=== PATIENT | male | born 1935 | race Caucasian/White ===

== ENCOUNTER 2017-08-10 14:46 | Inpatient (IN) | payer MEDICARE ==
[~2017-08-10] VITALS: Ht 180.3 cm; Wt 72.6 kg
--- NOTE | 2017-08-10 15:10 | NUR ---
There are no ER beds available due to ED saturation. Pt placed in rashaun chair in hallway. Pt's and hris administrator from sending facility at sitting at bedside.
--- NOTE | 2017-08-10 15:15 | NUR ---
Unable to reconcile home medications at this time due to ED saturation.
[2017-08-10 15:54] LABS: BASOPHILS % (AUTO) 0.5 % (0.0-2.0); CARBON DIOXIDE 29 mmol/L (21-32); CHLORIDE 106 mmol/L (98-107); CREATININE 1.1 mg/dL (0.6-1.3); EOSINOPHILS # (AUTO) 0.1 K/uL (0.0-0.7); EOSINOPHILS % (AUTO) 2.2 % (0.0-7.0); GLUCOSE 99 mg/dL (74-106); HEMATOCRIT 35.2 % (36.7-47.1); LYMPHOCYTES # (AUTO) 2.4 K/uL (20.0-40.0); LYMPHOCYTES % (AUTO) 44.3 % (20.5-51.5); MEAN CORPUSCULAR HEMOGLOBIN 31.7 uug (23.8-33.4); MEAN CORPUSCULAR HGB CONC 34 g/dL (32.5-36.3); MEAN CORPUSCULAR VOLUME 93.2 fL (73.0-96.2); MONOCYTES # (AUTO) 0.5 K/uL (2.0-10.0); MONOCYTES % (AUTO) 9.8 % (0.0-11.0); NEUTROPHILS # (AUTO) 2.4 K/uL (1.8-8.9); NEUTROPHILS % (AUTO) 43.2 % (38.5-71.5); PLATELET COUNT (AUTO) 158 K/uL (152-348); POTASSIUM 4.3 mmol/L (3.5-5.1); RED BLOOD CELL COUNT(AUTO) 3.78 MIL/uL (4.06-5.63); UREA NITROGEN, BLOOD 24 mg/dL (7-18); WHITE BLOOD COUNT (AUTO) 5.5 K/uL (3.6-10.2)
[2017-08-10 16:04] LABS: ETHANOL < 3 MG/DL (0-0)
[2017-08-10 16:07] LABS: ALANINE AMINOTRANSFERASE 47 U/L (16-63); ALKALINE PHOSPHATASE 90 U/L (50-136); ASPARTATE AMINOTRANSFERASE 22 U/L (15-37); BILIRUBIN,DIRECT 0.1 mg/dL (0.0-0.2); BILIRUBIN,TOTAL 0.3 mg/dL (0.2-1.0); TOTAL PROTEIN, SERUM 6.5 g/dL (6.4-8.2)
[2017-08-10 16:12] LABS: ACETAMINOPHEN < 2.0 ug/mL (10-30)
[2017-08-10 17:26] LABS: *BILIRUBIN,URIN NEGATIVE (NEGATIVE); *BLOOD, URINE NEGATIVE (NEGATIVE); *CLARITY,URINE CLEAR (CLEAR); *COLOR,URINE YELLOW (YELLOW); *KETONES,URINE NEGATIVE (NEGATIVE); *PROTEIN,URINE NEGATIVE (NEGATIVE); LEUKOCYTE ESTERASE ,URINE NEGATIVE (NEGATIVE); NITRITE, URINE NEGATIVE (NEGATIVE); PH,URINE 6.5 (5.0-8.0); UGLUCOSE NEGATIVE (NEGATIVE)
[2017-08-10 17:32] LABS: *AMPHETAMINE, URINE NEGATIVE (NEGATIVE); *BARBITURATE, URINE NEGATIVE (NEGATIVE); *CANNABINOID, URINE NEGATIVE (NEGATIVE); *COCCAINE, URINE NEGATIVE (NEGATIVE); *OPIATE, URINE NEGATIVE (NEGATIVE); *PHENCYCLIDINE SCREEN,URINE NEGATIVE (NEGATIVE)
[2017-08-10 17:37] LABS: WBC,URINE 0-3 /HPF (0-3)
--- NOTE | 2017-08-10 18:39 | NUR ---
mse completed, pt placed on 5150 hold, pt in rm 5b with at bedside. belongings list/admit order written. pt presently rersting, no distress noted.
--- NOTE | 2017-08-10 18:53 | NUR ---
Pt. admitted to [facility], under care of Dr. Rodriguez Belongs List completed
[2017-08-10] MEDS ORDERED: MAG HYDROX/AL HYDROX/SIMETH 30 ML LIQUID UDC PO PRN (20:00)
[2017-08-10] MEDS ORDERED: MAGNESIUM HYDROXIDE 30 ML LIQUID UDC PO PRN (20:00)
[2017-08-10] MEDS: DIVALPROEX 250 MG TABLET.DR PO SCH (21:16)
[2017-08-10] MEDS: HALOPERIDOL 0.5 MG TABLET PO SCH (21:16)
[2017-08-10] MEDS: RIVASTIGMINE TARTRATE 1.5 MG CAPSULE PO SCH (21:17)
[2017-08-10] MEDS ORDERED: DIVALPROEX 250 MG TABLET.DR PO ONE (21:27)
[2017-08-10] MEDS ORDERED: RIVASTIGMINE TARTRATE 1.5 MG CAPSULE ONE (21:28)
[2017-08-10] MEDS ORDERED: HALOPERIDOL 0.5 MG TABLET ONE (21:28)
--- NOTE | 2017-08-10 21:47 | NUR ---
Admitted 82 year old male to the unit on 5149 for GD and DTO, from [facility] in [facility], accompanied by his . Pt awake, a/o x1 name only, very confused, most questions obtained from (DPOA). all valuables and contraband sent home with the . pt allowed body assess, but noted to be easily irritated, agitated, anxious and restless. pt fed and ate 100%. Assisted to the restroom, diaper changed and taken to his room. pt seen by Dr fried, new orders obtained and carried out, will continue to monitor closely.
[2017-08-10 22:53] VITALS: BP 142/82
[2017-08-10] MEDS ORDERED: LORA0.5T PO (23:12)
[2017-08-10] MEDS ORDERED: LEVE500T9 PO (23:12)
[2017-08-10] MEDS ORDERED: OMEG1CAP55 PO (23:12)
[2017-08-10] MEDS ORDERED: QUET25TA PO (23:12)
[2017-08-10] MEDS ORDERED: DIVA250T PO (23:12)
[2017-08-10] MEDS ORDERED: TRAV5DRO OP (23:12)
[2017-08-10] MEDS ORDERED: ASPI81TA31 PO (23:12)
[2017-08-10] MEDS ORDERED: DONE10TA44 PO (23:12)
[2017-08-10] MEDS ORDERED: ATOR20TA PO (23:12)
[2017-08-10] MEDS ORDERED: CHOL400T32 PO (23:12)
[2017-08-11] MEDS: LORAZEPAM 1 MG TABLET PO PRN (03:06)
[2017-08-11 07:30] VITALS: BP 125/71
[2017-08-11] MEDS: DIVALPROEX 250 MG TABLET.DR PO SCH ×3 (10:16→18:18)
[2017-08-11] MEDS: RIVASTIGMINE TARTRATE 1.5 MG CAPSULE PO SCH ×2 (10:17→20:50)
[2017-08-11] MEDS: HALOPERIDOL 0.5 MG TABLET PO SCH ×3 (10:17→18:18)
[2017-08-11] MEDS ORDERED: LEVETIRACETAM 500 MG TABLET PO SCH (12:15)
[2017-08-11] MEDS: CHOLECALCIFEROL 400 UNITS TABLET PO SCH (13:52)
[2017-08-11] MEDS: ASPIRIN 81 MG TAB.CHEW PO SCH (13:53)
[2017-08-11 15:32] VITALS: BP 124/52
[2017-08-11] MEDS: LATANOPROST OPHT DROP 2.5 ML BOTTLE EACHEYE SCH (20:49)
[2017-08-11] MEDS: ATORVASTATIN 20 MG TABLET PO SCH (20:49)
[2017-08-11 20:51] VITALS: BP 108/63
[2017-08-11] MEDS ORDERED: TRAVOPROST 0.004% OPHT DROP 2.5 ML BOTTLE EACHEYE SCH (21:00)
--- NOTE | 2017-08-11 22:00 | NUR ---
RECEIVED PATIENT IN HIS BED AWAKE. HE WAS NOTED A/O X 1 ABLE TO AMBULATE WITH SLOW BUT STEADY GAIT. CONFUSED, DISORGANIZED. FAT AFFECT. DEPRESSED MOOD. NO AGGRESSIVE BX NOTED AT THIS TIME. PATIENT PRESENTS WITH SLOW SPEECH, LOW PITCH VOICE, SINGLE WORDS, HE SEEMS TO BE UNABLE TO UNDERSTAND AND ANSWER QUESTIONS. MEDICATION COMPLAINT AT THIS TIME. WILL CONTINUE TO MONITOR.
[2017-08-12 07:30] VITALS: BP 142/82
[2017-08-12] MEDS: ASPIRIN 81 MG TAB.CHEW PO SCH (08:15)
[2017-08-12] MEDS: RIVASTIGMINE TARTRATE 1.5 MG CAPSULE PO SCH ×2 (08:15→20:16)
[2017-08-12] MEDS: DIVALPROEX 250 MG TABLET.DR PO SCH ×3 (08:15→16:50)
[2017-08-12] MEDS: CHOLECALCIFEROL 400 UNITS TABLET PO SCH (08:15)
[2017-08-12] MEDS: LEVETIRACETAM 250 MG TABLET PO SCH (08:15)
[2017-08-12] MEDS: HALOPERIDOL 0.5 MG TABLET PO SCH ×3 (08:15→16:50)
[2017-08-12 15:28] VITALS: BP 131/72
[2017-08-12 20:17] VITALS: BP 101/60
[2017-08-12] MEDS: ATORVASTATIN 20 MG TABLET PO SCH (20:17)
[2017-08-12] MEDS: LATANOPROST OPHT DROP 2.5 ML BOTTLE EACHEYE SCH (20:21)
[2017-08-12] MEDS: LORAZEPAM 1 MG TABLET PO PRN (22:53)
--- NOTE | 2017-08-12 23:55 | NUR ---
PATIENT NOTED PACING THE HALLWAY. ANXIOUS MOOD. ATIVAN 1MG PO PRN WAS GIVEN AT 2253 FOR AGITATION. AT APPROX 2350, PATIENT NOTED SLEEPING COMFORTABLE IN HIS BED. WILL CONTINUE WITH SAFETY AND FALL PRECAUTION.
--- NOTE | 2017-08-13 02:50 | NUR ---
RECEIVED PATIENT IN HIS ROOM. HE IS A/O X 1 CONTINUE CONFUSED, WONDERING AND PACING THE UNIT HAVING SOME DIFFICULTY MAKING HIS NEEDS KNOW. SPEAKS IN ONE WORD AT A TIME, UNABLE TO COMPLETE ONE SENTENCE OR THOUGHT. HOWEVER HE IS ABLE TO BE REDIRECTED AND ABLE FOLLOW SIMPLE DIRECTIONS. PATIENT ABLE TO WALK WITH STEADY GAIT. NO AGGRESSIVE BX NOTED. NO VH OR AH NOTED OR REPORTED AT THIS TIME. PATIENT COMPLIANT WITH MEDICATION REGIMENT. SAFETY EMPHASIS. WILL CONTINUE TO MONITOR.
--- NOTE | 2017-08-13 03:23 | NUR ---
PATIENT IS AWAKE IN HIS BED. HE IS ABLE TO BE REDIRECTED. WILL CONTINUE TO MONITOR.
[2017-08-13 07:30] VITALS: BP 138/73
[2017-08-13] MEDS: ASPIRIN 81 MG TAB.CHEW PO SCH (08:33)
[2017-08-13] MEDS: CHOLECALCIFEROL 400 UNITS TABLET PO SCH (08:33)
[2017-08-13] MEDS: HALOPERIDOL 0.5 MG TABLET PO SCH ×3 (08:33→17:56)
[2017-08-13] MEDS: DIVALPROEX 250 MG TABLET.DR PO SCH ×3 (08:33→17:56)
[2017-08-13] MEDS: LEVETIRACETAM 250 MG TABLET PO SCH (08:33)
[2017-08-13] MEDS: RIVASTIGMINE TARTRATE 1.5 MG CAPSULE PO SCH (08:33)
[2017-08-13] MEDS: LORAZEPAM 1 MG TABLET PO PRN (13:50)
--- NOTE | 2017-08-13 16:20 | NUR ---
DC Note: Patient currently resides at [facility] [[address] [place] [address]]. Patient's Elaine [[phone]] stated she would like patient to continue staying at the facility. SW will follow up with [facility] to confirm patient can return upon discharge. SW will follow up with MD, patient, and patient's family to discuss most appropriate discharge plans. SW will form a safe and proper discharge.
[2017-08-13 17:13] VITALS: BP 119/54
[2017-08-13] MEDS: ATORVASTATIN 20 MG TABLET PO SCH (20:35)
[2017-08-13] MEDS: LATANOPROST OPHT DROP 2.5 ML BOTTLE EACHEYE SCH (20:35)
[2017-08-13 21:11] VITALS: BP 112/61
--- NOTE | 2017-08-13 23:31 | NUR ---
RECEIVED PATIENT IN HIS ROOM AWAKE. HE IS A/O X 1 CONTINENT OF BOWEL AND BLADDER AND ABLE TO AMBULATE WITH STEADY GAIT. CONTINUE CONFUSED, WONDERING AND PACING THE UNIT HAVING SOME DIFFICULTY MAKING HIS NEEDS KNOW. SPEAKS IN ONE WORD AT A TIME, UNABLE TO COMPLETE ONE SENTENCE OR THOUGHT. HOWEVER, HE IS REDIRECTABLE AND ABLE FOLLOW SIMPLE DIRECTIONS. NO AGGRESSIVE BX NOTED. NO VH OR AH NOTED OR REPORTED AT THIS TIME. PATIENT COMPLIANT WITH MEDICATION REGIMENT. SAFETY EMPHASIS. WILL CONTINUE TO MONITOR.
[2017-08-14] MEDS: LORAZEPAM 1 MG TABLET PO PRN ×3 (02:51→19:54)
--- NOTE | 2017-08-14 03:00 | NUR ---
PT. CAME OUT OF HIS ROOM. PACING THE HALLWAY, ANXIOUS. ATIVAN 1MG PO PRN WAS GIVEN FOR ANXIETY. PT WAS REDIRECTED BACK TO HIS BED. WILL CONTINUE TO MONITOR.
--- NOTE | 2017-08-14 07:06 | NUR ---
PATIENT SLEPT FOR APPROX 7HRS THROUGH THE NIGHT. HE WAS NOTED INCONTINENT OF BLADDER ONCE DURING THE NIGHT. HE CONTINUE CONFUSED AND FORGETFUL. UNABLE TO SPEAK IN FULL SENTENCES. HOWEVER, HE IS REDIRECTABLE AT THIS TIME. NO AGGRESSIVE OR COMBATIVE BX NOTED DURING THE SHIFT. PATIENT ABLE TO COMPLY WITH MEDICATION REGIMENT. WILL CONTINUE TO MONITOR.
[2017-08-14 07:30] VITALS: BP 125/55
[2017-08-14] MEDS: LEVETIRACETAM 250 MG TABLET PO SCH (08:14)
[2017-08-14] MEDS: ASPIRIN 81 MG TAB.CHEW PO SCH (08:14)
[2017-08-14] MEDS: DIVALPROEX 250 MG TABLET.DR PO SCH ×3 (08:14→17:32)
[2017-08-14] MEDS: CHOLECALCIFEROL 400 UNITS TABLET PO SCH (08:14)
[2017-08-14] MEDS: HALOPERIDOL 0.5 MG TABLET PO SCH ×3 (08:14→17:32)
[2017-08-14] MEDS: RIVASTIGMINE TARTRATE 3 MG CAPSULE PO SCH ×2 (08:14→17:32)
[2017-08-14 09:24] LABS: CARBON DIOXIDE 27 mmol/L (21-32); CHLORIDE 105 mmol/L (98-107); CREATININE 1.2 mg/dL (0.6-1.3); GLUCOSE 90 mg/dL (74-106); POTASSIUM 3.9 mmol/L (3.5-5.1); UREA NITROGEN, BLOOD 21 mg/dL (7-18)
[2017-08-14 16:44] VITALS: BP 119/70
[2017-08-14] MEDS: LATANOPROST OPHT DROP 2.5 ML BOTTLE EACHEYE SCH (20:00)
[2017-08-14] MEDS: ATORVASTATIN 20 MG TABLET PO SCH (20:00)
[2017-08-14 20:12] VITALS: BP 111/63
[2017-08-15 08:00] VITALS: BP 131/75
[2017-08-15] MEDS: RIVASTIGMINE TARTRATE 3 MG CAPSULE PO SCH ×2 (08:10→16:48)
[2017-08-15] MEDS: LEVETIRACETAM 250 MG TABLET PO SCH (08:10)
[2017-08-15] MEDS: ASPIRIN 81 MG TAB.CHEW PO SCH (08:10)
[2017-08-15] MEDS: HALOPERIDOL 0.5 MG TABLET PO SCH ×3 (08:10→16:48)
[2017-08-15] MEDS: DIVALPROEX 250 MG TABLET.DR PO SCH ×3 (08:10→16:48)
[2017-08-15] MEDS: CHOLECALCIFEROL 400 UNITS TABLET PO SCH (08:10)
[2017-08-15 10:19] LABS: BASOPHILS % (AUTO) 0.4 % (0.0-2.0); EOSINOPHILS % (AUTO) 0.8 % (0.0-7.0); HEMATOCRIT 38.2 % (36.7-47.1); LYMPHOCYTES # (AUTO) 2.2 K/uL (20.0-40.0); LYMPHOCYTES % (AUTO) 41.7 % (20.5-51.5); MEAN CORPUSCULAR HEMOGLOBIN 31.7 uug (23.8-33.4); MEAN CORPUSCULAR HGB CONC 34 g/dL (32.5-36.3); MEAN CORPUSCULAR VOLUME 93.2 fL (73.0-96.2); MONOCYTES # (AUTO) 0.4 K/uL (2.0-10.0); MONOCYTES % (AUTO) 7.7 % (0.0-11.0); NEUTROPHILS # (AUTO) 2.6 K/uL (1.8-8.9); NEUTROPHILS % (AUTO) 49.4 % (38.5-71.5); PLATELET COUNT (AUTO) 167 K/uL (152-348); WHITE BLOOD COUNT (AUTO) 5.3 K/uL (3.6-10.2)
[2017-08-15 10:20] LABS: ALANINE AMINOTRANSFERASE 41 U/L (16-63); ALKALINE PHOSPHATASE 85 U/L (50-136); ASPARTATE AMINOTRANSFERASE 24 U/L (15-37); BILIRUBIN,TOTAL 0.6 mg/dL (0.2-1.0); CARBON DIOXIDE 28 mmol/L (21-32); CHLORIDE 106 mmol/L (98-107); CREATININE 1.2 mg/dL (0.6-1.3); GLUCOSE 103 mg/dL (74-106); MAGNESIUM 2.2 mg/dL (1.8-2.4); PHOSPHOROUS 3.5 mg/dL (2.5-4.9); POTASSIUM 3.8 mmol/L (3.5-5.1); TOTAL PROTEIN, SERUM 7.2 g/dL (6.4-8.2); UREA NITROGEN, BLOOD 23 mg/dL (7-18); VALPROIC ACID 67 ug/mL (50-100)
[2017-08-15 12:35] LABS: THYROID STIMULATING HORMONE 1.445 mIU/mL (0.358-3.740)
[2017-08-15 16:00] VITALS: BP 150/70
[2017-08-15] MEDS: ACETAMINOPHEN 325 MG TABLET PO PRN ×2 (17:36→21:54)
[2017-08-15] MEDS: ATORVASTATIN 20 MG TABLET PO SCH (20:26)
[2017-08-15] MEDS: LATANOPROST OPHT DROP 2.5 ML BOTTLE EACHEYE SCH (20:27)
[2017-08-15] MEDS: LORAZEPAM 1 MG TABLET PO PRN (20:27)
[2017-08-15 20:36] VITALS: BP 131/60
[2017-08-16 07:30] VITALS: BP 120/59
[2017-08-16] MEDS: DIVALPROEX 250 MG TABLET.DR PO SCH ×3 (09:01→16:55)
[2017-08-16] MEDS: HALOPERIDOL 0.5 MG TABLET PO SCH ×3 (09:01→16:55)
[2017-08-16] MEDS: ASPIRIN 81 MG TAB.CHEW PO SCH (09:01)
[2017-08-16] MEDS: CHOLECALCIFEROL 400 UNITS TABLET PO SCH (09:01)
[2017-08-16] MEDS: LEVETIRACETAM 250 MG TABLET PO SCH (09:01)
[2017-08-16] MEDS: RIVASTIGMINE TARTRATE 3 MG CAPSULE PO SCH ×2 (09:01→16:55)
[2017-08-16 15:00] VITALS: BP 124/67
--- NOTE | 2017-08-16 17:44 | NUR ---
Gps/Attractions Associate- Remains on 1:1 Nursing supervision for safety. Had been redirectable, compliant with his medications , had been staying in his room most of the afternoon, asleep, arousable.
[2017-08-16 20:00] VITALS: BP 124/65
[2017-08-16] MEDS: ATORVASTATIN 20 MG TABLET PO SCH (21:00)
[2017-08-16] MEDS: LATANOPROST OPHT DROP 2.5 ML BOTTLE EACHEYE SCH (21:00)
[2017-08-17 07:30] VITALS: BP 132/79
[2017-08-17] MEDS: RIVASTIGMINE TARTRATE 3 MG CAPSULE PO SCH ×2 (08:49→16:39)
[2017-08-17] MEDS: DIVALPROEX 250 MG TABLET.DR PO SCH ×3 (08:49→16:39)
[2017-08-17] MEDS: HALOPERIDOL 0.5 MG TABLET PO SCH ×3 (08:49→16:39)
[2017-08-17] MEDS: LEVETIRACETAM 250 MG TABLET PO SCH (08:49)
[2017-08-17] MEDS: ASPIRIN 81 MG TAB.CHEW PO SCH (08:49)
[2017-08-17] MEDS: CHOLECALCIFEROL 400 UNITS TABLET PO SCH (08:49)
[2017-08-17 16:00] VITALS: BP 118/60
[2017-08-17] MEDS: ATORVASTATIN 20 MG TABLET PO SCH (20:27)
[2017-08-17] MEDS: TEMAZEPAM 7.5 MG CAPSULE PO PRN (20:27)
[2017-08-17 20:56] VITALS: BP 124/67
[2017-08-17] MEDS: LATANOPROST OPHT DROP 2.5 ML BOTTLE EACHEYE SCH (21:00)
[2017-08-18 07:30] VITALS: BP 118/73
[2017-08-18] MEDS: RIVASTIGMINE TARTRATE 3 MG CAPSULE PO SCH ×2 (09:38→17:07)
[2017-08-18] MEDS: LEVETIRACETAM 250 MG TABLET PO SCH (09:38)
[2017-08-18] MEDS: CHOLECALCIFEROL 400 UNITS TABLET PO SCH (09:38)
[2017-08-18] MEDS: HALOPERIDOL 0.5 MG TABLET PO SCH ×3 (09:38→17:08)
[2017-08-18] MEDS: DIVALPROEX 250 MG TABLET.DR PO SCH ×3 (09:38→17:07)
[2017-08-18] MEDS: ASPIRIN 81 MG TAB.CHEW PO SCH (09:38)
[2017-08-18 16:52] VITALS: BP 117/64
[2017-08-18] MEDS: LATANOPROST OPHT DROP 2.5 ML BOTTLE EACHEYE SCH (19:56)
[2017-08-18] MEDS: ATORVASTATIN 20 MG TABLET PO SCH (19:56)
[2017-08-18] MEDS: TEMAZEPAM 7.5 MG CAPSULE PO PRN (19:57)
[2017-08-18 20:28] VITALS: BP 120/70
[2017-08-19 07:09] LABS: ALANINE AMINOTRANSFERASE 29 U/L (16-63); ALKALINE PHOSPHATASE 72 U/L (50-136); ASPARTATE AMINOTRANSFERASE 17 U/L (15-37); BILIRUBIN,TOTAL 0.5 mg/dL (0.2-1.0); CARBON DIOXIDE 27 mmol/L (21-32); CHLORIDE 105 mmol/L (98-107); GLUCOSE 86 mg/dL (74-106); MAGNESIUM 1.9 mg/dL (1.8-2.4); PHOSPHOROUS 3.1 mg/dL (2.5-4.9); POTASSIUM 4.1 mmol/L (3.5-5.1); TOTAL PROTEIN, SERUM 6.3 g/dL (6.4-8.2); UREA NITROGEN, BLOOD 19 mg/dL (7-18)
[2017-08-19 07:18] LABS: BASOPHILS % (AUTO) 0.3 % (0.0-2.0); EOSINOPHILS # (AUTO) 0.1 K/uL (0.0-0.7); EOSINOPHILS % (AUTO) 1.2 % (0.0-7.0); HEMATOCRIT 36.7 % (36.7-47.1); HEMOGLOBIN 12.7 g/dL (12.5-16.3); LYMPHOCYTES # (AUTO) 1.8 K/uL (20.0-40.0); MEAN CORPUSCULAR HEMOGLOBIN 31.9 uug (23.8-33.4); MEAN CORPUSCULAR HGB CONC 35 g/dL (32.5-36.3); MEAN CORPUSCULAR VOLUME 92.3 fL (73.0-96.2); MONOCYTES # (AUTO) 0.4 K/uL (2.0-10.0); NEUTROPHILS % (AUTO) 46.5 % (38.5-71.5); PLATELET COUNT (AUTO) 138 K/uL (152-348); RED BLOOD CELL COUNT(AUTO) 3.97 MIL/uL (4.06-5.63); WHITE BLOOD COUNT (AUTO) 4.3 K/uL (3.6-10.2)
[2017-08-19 07:30] VITALS: BP 123/68
[2017-08-19] MEDS: LEVETIRACETAM 250 MG TABLET PO SCH (08:05)
[2017-08-19] MEDS: CHOLECALCIFEROL 400 UNITS TABLET PO SCH (08:05)
[2017-08-19] MEDS: HALOPERIDOL 0.5 MG TABLET PO SCH ×4 (08:06→21:00)
[2017-08-19] MEDS: ASPIRIN 81 MG TAB.CHEW PO SCH (08:06)
[2017-08-19] MEDS: DIVALPROEX 250 MG TABLET.DR PO SCH ×3 (08:06→17:13)
[2017-08-19] MEDS: RIVASTIGMINE TARTRATE 3 MG CAPSULE PO SCH ×2 (08:08→17:13)
[2017-08-19] MEDS: LORAZEPAM 1 MG TABLET PO PRN (12:00)
[2017-08-19 16:22] VITALS: BP 116/71
[2017-08-19 20:00] VITALS: BP 114/66
[2017-08-19] MEDS: ATORVASTATIN 20 MG TABLET PO SCH (21:00)
[2017-08-19] MEDS: BENZTROPINE MESYLATE 0.5 MG TABLET PO SCH (21:00)
[2017-08-19] MEDS: LATANOPROST OPHT DROP 2.5 ML BOTTLE EACHEYE SCH (21:00)
[2017-08-20 07:30] VITALS: BP 118/67
[2017-08-20] MEDS: CHOLECALCIFEROL 400 UNITS TABLET PO SCH (08:00)
[2017-08-20] MEDS: LEVETIRACETAM 250 MG TABLET PO SCH (08:00)
[2017-08-20] MEDS: ASPIRIN 81 MG TAB.CHEW PO SCH (08:00)
[2017-08-20] MEDS: RIVASTIGMINE TARTRATE 3 MG CAPSULE PO SCH ×2 (08:00→16:30)
[2017-08-20] MEDS: HALOPERIDOL 0.5 MG TABLET PO SCH ×4 (08:00→20:15)
[2017-08-20] MEDS: DIVALPROEX 250 MG TABLET.DR PO SCH ×3 (08:00→16:30)
[2017-08-20 17:10] VITALS: BP 100/51
[2017-08-20] MEDS: LATANOPROST OPHT DROP 2.5 ML BOTTLE EACHEYE SCH (20:14)
[2017-08-20] MEDS: BENZTROPINE MESYLATE 0.5 MG TABLET PO SCH (20:15)
[2017-08-20] MEDS: ATORVASTATIN 20 MG TABLET PO SCH (20:15)
[2017-08-20 20:24] VITALS: BP 116/62
[2017-08-21 07:30] VITALS: BP 108/60
[2017-08-21] MEDS: RIVASTIGMINE TARTRATE 3 MG CAPSULE PO SCH ×2 (08:59→17:39)
[2017-08-21] MEDS: LEVETIRACETAM 250 MG TABLET PO SCH (08:59)
[2017-08-21] MEDS: LORAZEPAM 1 MG TABLET PO PRN ×3 (08:59→17:39)
[2017-08-21] MEDS: ASPIRIN 81 MG TAB.CHEW PO SCH (08:59)
[2017-08-21] MEDS: CHOLECALCIFEROL 400 UNITS TABLET PO SCH (08:59)
[2017-08-21] MEDS: DIVALPROEX 250 MG TABLET.DR PO SCH ×3 (08:59→17:39)
[2017-08-21] MEDS: HALOPERIDOL 1 MG TABLET PO SCH ×3 (08:59→17:39)
[2017-08-21 15:00] VITALS: BP 156/73
[2017-08-21] MEDS: BENZTROPINE MESYLATE 0.5 MG TABLET PO SCH (20:18)
[2017-08-21] MEDS: ATORVASTATIN 20 MG TABLET PO SCH (20:18)
[2017-08-21] MEDS: LATANOPROST OPHT DROP 2.5 ML BOTTLE EACHEYE SCH (20:19)
[2017-08-21 20:56] VITALS: BP 96/61
[2017-08-22 08:00] VITALS: BP 112/73
[2017-08-22] MEDS: RIVASTIGMINE TARTRATE 3 MG CAPSULE PO SCH ×2 (08:27→17:00)
[2017-08-22] MEDS: DIVALPROEX 250 MG TABLET.DR PO SCH ×3 (08:27→17:00)
[2017-08-22] MEDS: CHOLECALCIFEROL 400 UNITS TABLET PO SCH (08:27)
[2017-08-22] MEDS: HALOPERIDOL 1 MG TABLET PO SCH ×3 (08:28→17:01)
[2017-08-22] MEDS: ASPIRIN 81 MG TAB.CHEW PO SCH (08:28)
[2017-08-22] MEDS: LEVETIRACETAM 250 MG TABLET PO SCH (08:28)
--- NOTE | 2017-08-22 10:35 | NUR ---
DC Note: Patient will be discharged to [facility] [[address], [place] [address]; ] via private transportation at 6:30pm. Transportation will be provided by [facility]. JUSTIN spoke with Shiloh at [facility] to confirm discharge plans. Patient is aware of discharge plans. JUSTIN spoke with patient's and MORAIMANANI Morejon [[phone]] who is aware and agreeable to discharge plans. Patient will follow up with Dr. Dickerson ([facility]) and Dr. Cuevas (Psychiatrist).
--- NOTE | 2017-08-22 11:00 | NUR ---
DISCHARGE PLANNING TO THE [facility] TODAY WILL BE PICKED UP BY THE [facility] TODAY.
--- NOTE | 2017-08-22 15:34 | NUR ---
CALLED [facility] AND REPORT GIVEN TO MARIZA FOR CONTINUING CARE PATIENT WILL BE PICKED UP BY THE [facility] LATER THIS EVENING PATIENT AND HIS AWARE BUT PATIENT IS CONFUSED AND DISORIENTED AND UNABLE TO COMPREHEND.
[2017-08-22 16:00] VITALS: BP 135/65
--- NOTE | 2017-08-22 17:00 | NUR ---
THE ELECTROLYTIC DE SCALER STATED THAT MAY BE THE [facility] WILL NOT BE ABLE TO ACCOMODATE PATIENT TODAY BUT STATED THAT THEY WILL CALL AND LET US KNOW LATER THIS EVENING.
--- NOTE | 2017-08-22 18:00 | NUR ---
PER THE TENDER COORDINATOR SHE CALLED THE [facility] AND THEY WILL NOT BE ABLE TO TAKE PATIENT TODAY.PATIENT AWARE BUT HE IS CONFUSED DISORIENTED AND UNABLE TO COMPREHEND.
--- NOTE | 2017-08-22 19:40 | NUR ---
GOT A CALL FROM [facility] NOTIFYING US THAT THE PT WILL BE PICKED UP TONIGHT BY [facility] AFTER THEY DROP OFF ANOTHER PT IN THE ER TO BE ADMITTED TO [facility].
[2017-08-22 20:00] VITALS: BP 112/63
[2017-08-22] MEDS ORDERED: HALO2TAB PO ×4 (20:02→20:34)
[2017-08-22] MEDS: BENZTROPINE MESYLATE 0.5 MG TABLET PO SCH (20:13)
[2017-08-22] MEDS: LATANOPROST OPHT DROP 2.5 ML BOTTLE EACHEYE SCH (20:13)
[2017-08-22] MEDS: ATORVASTATIN 20 MG TABLET PO SCH (20:13)
--- NOTE | 2017-08-22 20:30 | NUR ---
per nursing supervisor electric motor testing/ pt is to be picked up, this evening by [facility] staff, for transfer. pt was notified, but is unable to comprehend, due to confusion. will monitor closely.
[2017-08-22] MEDS ORDERED: BENZ2AMP PO (20:35)
[2017-08-22] MEDS ORDERED: DIVA250T4 PO (20:36)
[2017-08-22] MEDS ORDERED: RIVA1PAT PO (20:37)
--- NOTE | 2017-08-22 21:30 | NUR ---
received to care, isolative in room, confused, but pleasant upon approach. compliant with medications and staff direction. as of 2129, he appears to be asleep, in bed. no distress noted. currently awaiting transfer this evening, to [facility]. will continue to monitor closely.
--- NOTE | 2017-08-22 22:45 | NUR ---
[facility] STAFF HERE TO BOILER OR ENGINE OPERATOR PT, ALL PT'S BELONGINGS SENT WITH PT INCLUDING CARE PACKET. PT ASSISTED INTO A WHEELCHAIR AND TAKEN TO THE PARKING LOT BY THE BLENDER HELPER STAFF.
== END 2017-08-22 22:54 | DRG 885 ==
LOC: ER 14:47 → GPS 19:08
PROVIDERS: ADMIT Psychiatry & Neurology Psychiatry
DX: F39 Unspecified mood [affective] disorder (principal); F02.81 Dementia in other diseases classified elsewhere, unspecified severity, with behavioral disturbance; I11.0 Hypertensive heart disease with heart failure; E88.09 Other disorders of plasma-protein metabolism, not elsewhere classified; D69.6 Thrombocytopenia, unspecified; E44.1 Mild protein-calorie malnutrition; G30.9 Alzheimer's disease, unspecified; I50.9 Heart failure, unspecified; E86.0 Dehydration; S01.81XD Laceration without foreign body of other part of head, subsequent encounter; Z95.0 Presence of cardiac pacemaker; W01.0XXD Fall on same level from slipping, tripping and stumbling without subsequent striking against object, subsequent encounter; Z85.46 Personal history of malignant neoplasm of prostate; Z68.22 Body mass index [BMI] 22.0-22.9, adult; F41.9 Anxiety disorder, unspecified; G40.909 Epilepsy, unspecified, not intractable, without status epilepticus; D64.9 Anemia, unspecified; I49.9 Cardiac arrhythmia, unspecified; I70.0 Atherosclerosis of aorta
CPT/HCPCS: 36415; 71045; 80164; 80307; 83735; 84100; 84443; 85025; 93005; A4663; G0480; G0480-TC; J3490